=== PATIENT | female | born 1970 | race Caucasian/White ===

== ENCOUNTER 2020-11-04 21:27 | Emergency (ER) | payer BC, SELFPAY ==
--- NOTE | ~2020-11-04 | XR_ITS ---
EXAMINATION: XR HAND/WRIST, LEFT CLINICAL INFORMATION: Laceration. Pain with movement. COMPARISON: None TECHNIQUE: AP, oblique, and lateral views of the left hand and wrist. FINDINGS: Soft tissue laceration over the volar aspect of the left wrist. No radiopaque foreign body. No acute fracture or dislocation. Small marginal osteophytes scattered throughout the interphalangeal joints. No osseous erosion. No abnormal soft tissue calcification. XR/XR hand wrist LT IMPRESSION: Soft tissue laceration over the volar aspect of the left wrist without radiopaque foreign body. No acute osseous abnormality. 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
[2020-11-04 21:56] VITALS: BP 125/62; PULSE 83; RESP 16; TEMP 36.6; O2SAT 98; BMI 36.3
[2020-11-04] MEDS: Lidocaine HCl 2 % MPF 5 ML VIAL 10 ML SUBCUT (22:18)
--- NOTE | 2020-11-04 22:23 | ED.WOUNDLAC ---
HPI - Wound/Laceration General Chief Complaint: Wound/Laceration Stated Complaint: Laceration to wrist Time Seen by Provider: 11/04/20 22:06 Source: patient Mode of arrival: ambulatory Limitations: no limitations History of Present Illness HPI narrative: 50-year-old female presents with laceration to the left wrist. Stated that she was preparing for a baby shower, fell and slipped and cut her wrist on broken glass. She did present to urgent care however urgent care referred to the emergency department because the laceration may involve the tendon. Patient is able to move her extremities but states that she has a sharp stabbing pain when she moves her thumb. She did receive a tetanus shot approximately 2 years ago, did apply a pressure dressing. She does not report any other concerning symptoms. Onset (ago): hour(s) (Few hours prior to arrival) Extremity Location: left: wrist Place: home Patient tetanus UTD: Yes Context: accidental Associated symptoms: pain Treatments prior to arrival: bandage Related Data Allergies Allergy/AdvReac Type Severity Reaction Status Date / Time No Known Allergies Allergy Verified 11/04/20 21:55 Review of Systems Review of Systems: Constitutional: No Fever, No Chills ENT/Mouth: No Ear Pain, No Hoarseness, No sore throat Eyes: No Eye Pain, No Swelling, No Redness, No Foreign Body Cardiovascular: No Chest Pain, No SOB Respiratory: No Cough, No Dyspnea Gastrointestinal: No Nausea, No Vomiting, No Diarrhea, No abdominal Pain Genitourinary: No Dysuria, No Hematuria Musculoskeletal: positive left wrist pain, No Myalgias, No Joint Swelling Skin: Positive left wrist laceration, No rash Neuro: No Weakness, No Numbness, No Paresthesias, No Loss of Consciousness, No Dizziness, No Headache Psych: No Anxiety/Panic, No Depression Heme/Lymph: no easy bruising, no Lymphadenopathy Endocrine: No Polyuria, No Polydipsia Yes all other systems are reviewed and are negative [facility] Past Medical History Attestation statement: The following information was validated with the patient. Source: old records reviewed Medical History No known health problems Social History Social History Advance Directives: No Advance Directives Information Provided: No Physical Exam Vital Signs: Vital Signs: Last Vital Signs Temp 97.9 F 11/04/20 21:56 Pulse 83 11/04/20 21:56 Resp 16 11/04/20 21:56 BP 125/62 11/04/20 21:56 Pulse Ox 98 11/04/20 21:56 Body Mass Index 36.3 Appearance: Alert. Oriented X3. No acute distress. Eyes: Pupils equal, round and reactive to light. ENT: Pharynx normal. Neck: Normal inspection. Neck supple. CVS: Normal heart rate and rhythm. Pulses normal. Respiratory: No respiratory distress. Breath sounds normal. Abdomen: Soft and nontender. Skin: Skin warm and dry. Normal skin color. Normal skin turgor. Extremities: Has full range of motion and strength to all digits of the left hand, able to bend and flex without difficulty, no indication of tendon injury. Neuro: No motor deficit. No sensory deficit. Course Course Course Narrative: 50-year-old female presents with laceration to the left wrist. Will order x-rays to rule out foreign body. Patient does have full range of motion, strength 5/5 to each digit although difficult for her to move because of pain. No indication of tendon injury. 2 cm laceration to the left wrist at the ulnar side volar aspect. Irrigated with copious amounts of saline, prepped and draped in sterile fashion. X-rays negative for acute findings of bone involvement or foreign body. Please refer to procedure note for full details. 0 blood loss. Patient tolerated procedure well. Patient does understand that she must follow-up with hand surgery on Friday. Patient verbalized understanding of and agrees plan of care discharge home. Procedures Laceration Laceration 1: Site: upper extremity Side (If applicable): left Size (cm): 2 Description: linear Depth: simple, single layer Local Anesthetic: lidocaine 2% Amount of anesthesia used (mL): 5 Pre-repair: wound explored, irrigated extensively and deep structures intact Skin layer closed with: nylon Size (cm): 5-0 Number of sutures: 4 Technique: simple, interrupted MDM - Wound/Laceration Differential Diagnosis Differential diagnosis: Likely laceration Medical Records Attestation: I reviewed the patient's medical records. Lab Data Attestation: I reviewed the patient's lab results. Imaging Data Wrist x-ray: Attestation: I personally reviewed and interpreted this imaging study as follows: Radiologist's impression: TECHNIQUE: AP, oblique, and lateral views of the left hand and wrist. FINDINGS: Soft tissue laceration over the volar aspect of the left wrist. No radiopaque foreign body. No acute fracture or dislocation. Small marginal osteophytes scattered throughout the interphalangeal joints. No osseous erosion. No abnormal soft tissue calcification. XR/XR hand wrist LT IMPRESSION: Soft tissue laceration over the volar aspect of the left wrist without radiopaque foreign body. No acute osseous abnormality. 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 Discharge Plan Discharge Clinical Impression: Laceration Patient Disposition: Home, Self-Care Instructions: Laceration (ED) Additional Instructions: You were evaluated for laceration to the left wrist. X-rays do not indicate foreign body but it does show diffuse arthritis throughout your hand. Your laceration was deep, and tendons were exposed, you do have full range of motion to all of your extremities which makes it less likely that this is a tendon laceration. However you do need to follow-up with a hand surgeon. Please follow-up with orthopedics. 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 Please keep sutures in place for the next 10 days. Return in 10 days for removal. Thank you for choosing this emergency department for evaluation. Please follow-up with primary care physician as needed. Return to the emergency department for any new, concerning, or worsening symptoms. Referrals: Felicitas Gudino MD [Physician] - 2 days (Wrist laceration) Stand Alone Forms: Work/School Release Interventions: ED Discharge Assessment Last Done: 11/05/20 00:27 Discharge Date/Time: 11/05/20 00:27
== END 2020-11-05 00:27 | disposition home or self-care (01) ==
PROVIDERS: Emergency Provider Student in an Organized Health Care Education/Training Program; PCP Internal Medicine
DX: S61.512A Laceration without foreign body of left wrist, initial encounter (principal); W25.XXXA Contact with sharp glass, initial encounter; Y93.9 Activity, unspecified; Y92.9 Unspecified place or not applicable; Y99.9 Unspecified external cause status
CPT/HCPCS: 12001; 73110; 73130; 99284

== ENCOUNTER → 2020-11-10 08:42 | Outpatient (BNVA) | payer BC, SELFPAY | PROVIDERS: Visit Provider Physician Assistant ==

== ENCOUNTER → 2020-11-29 13:42 | Outpatient (BNVA) | payer BC, SELFPAY | PROVIDERS: PCP Internal Medicine; Visit Provider Physician Assistant ==

== ENCOUNTER 2020-12-07 14:00 | Outpatient (RCR) | payer BC, SELFPAY ==
--- NOTE | 2020-11-16 14:07 | MHC.OT.OEV ---
[address] [phone] F: [phone] Occupational Therapy Evaluation Diagnosis: LACERATION WITHOUT FOREIGN BODY OF L WRIST Date of Onset: 11/04/20 Attending Provider: Jeniffer Ponce Prescribed Treatment: EVAL AND RASHAUN MD Follow Up Appointment: 11/29/20 History of Current Condition: Pt REPORTS PREPARING FOR BABY SHOWER AND FELL ON BROKEN PUNCH BOWL GLASS. [place] [facility] [place]RAYS WERE PERFORMED AND WAS NEGATIVE FOR FOREIGN BODY OR BONE INVOLVEMENT. SHE HAD A 2 CM LACERATION TO THE LEFT WRIST AT THE ULNAR SIDE VOLAR ASPECT WITH FOUR SUTURES PLACED. SUTURES REMOVED 11/15/20. 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 DIFFICULTIES WITH DONNING/DOFFING BRA, PULLING ON SOCKS, WASHING DISHES AND BATHING LEs. UNABLE TO LIFT HEAVY ITEMS. Sleep: NO DIFFICULTIES WITH SLEEPING, WEARING SPLINT Driving: NO DIFFICULTIES; USING DOMINANT RUE Pain Assessment Pain Score: 0-9/10 Pain Scale Used: Numeric (0 - 10) Pain Location and Description: PAINFREE AT REST 4-9/10 ACHY FEELING; LACERATION SITE THROUGH SMALL FINGER DIPj Aggravating Factors: PINCHING, PULLING Alleviating Factors: TAKING TYLENOL, MASSAGE AND WRIST SUPPORT, HAS NOT TRIED HEAT OR ICE Skin and Soft Tissue Assessment Skin and Soft Tissue: Swelling Wound Comments: SMALL WOUND TO LEFT VOLAR, ULNAR WRIST; OA CHANGES IN B/L IP JOINTS Nerve assessment Ulnar Nerve: Left Impaired Median Nerve: Radial Nerve: Comments: DIMINISHED TO LIGHT TOUCH AT MEDIAL HAND PER SEMMES МАРИЯ ASSESSMENT Sensory Assessment Temperature: Light Touch: Left Impaired Proprioception: Vibration: Comments: Edema Assessment Upper Extremity: Left Impaired Lower Extremity: Comments: MILD EDEMA TO ULNAR WRIST CIRCUMFERNCE OF WRIST, DISTAL TO ULNA STYLOID: LEFT 17.4 CM, RIGHT 17.0 CM Dexterity Assessment Dexterity: Left Impaired Comments: FUNCTIONAL DEXTERITY TEST: LEFT 42 SECONDS (MODERATELY FUNCTIONAL), RIGHT 25 SECONDS Special Tests Comments: AROM(PROM) Strength Wrist Flexion: L 50 ,R 60 Extension: L 50, R 60 Ulnar Deviation: L 32, R 42 Radial Deviation: L 25, R 30 Comments: Flexion: Extension: Ulnar Deviation: Radial Deviation: Comments: Thumb Thumb CMC Flexion: Thumb MCP Flexion: Thumb IP Flexion: Radial Abduction: Palmar Abduction: [place] (Kapandji 0-10): 8 Comments: Digits Index MCP: PIP: DIP: Long MCP: PIP: DIP: Ring MCP: PIP: DIP: Small MCP: L 72, R 90 PIP: L 74, R 92 DIP: L 50, R 74 Comments: PAIN IN DIPj > PIPj WITH FLEXION Gross Grasp: R 75 POUNDS Lateral Pinch: R 16, L 6 Two-Point Pinch: Three-Jaw Adolfo: Comments: L COOK HELPER PASTRY STRENGTH DEFERRED Patient Education Primary Language: Lao Farm 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 Patient demonstrates Patient verbalizes Barriers to Learning: None Readiness for Learning: Accepting Who was educated? Patient Comments: Plan of Care Assessment: MS BRAVO IS 12 DAYS POST LACERATION TO L ULNA WRIST. HER SUTURES WERE REMOVED YESTERDAY, 11/15/20. 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 SHE HAS ACHY, SHOOTING PAIN THROUGH HER SMALL FINGER WITH FUNCTIONAL USE. A 52% LIMITATION IS REPORTED PER THE QUICK DASH ASSESSMENT. ONGOING SKILLED OT IS WARRANTED TO ACHIEVE OPTIMAL FUNCTIONAL LEVEL AND IMPROVE QOL, STG Duration: 3 WEEKS Short Term Goals: IND HEP IND JOINT PROTECTION TECHNIQUES KAPANDJI 10 REPORT <4/10 PAIN WITH ADLs AND LIGHT IADLs IND SCAR MOBILIZATION LTG Duration: 5 WEEKS Qa Architect Goals: QUICK DASH <30 COOK HELPER PASTRY STRENGTH 50 POUNDS FUNCTIONAL DEXTERITY TEST TO FUNCTIONAL LEVEL <28 SECONDS TOLERATE LIFTING >20 POUNDS WITH <2/10 PAIN L WRIST FLEX/EXT 60/60 Frequency and Duration: The patient will be seen 2X/WEEK FOR 5 WEEKS Treatment Plan: Therapeutic Exercise Therapeutic Activity Home Exercise Program Splinting Neuro Re-ed Patient Education Desensitization/Sensory Re-ed Edema Control ADL Training Ultrasound NMES Iontophoresis Paraffin Fluidotherapy MHP Cold Packs Joint Mobilization Soft Tissue Mobilization Kinesiotaping Electronically Signed By: KALA JACOBSON/Keven Reviewed/agree with student documentation: N/A Therapist: Please sign and return to therapist, Thank you for your referral.
--- NOTE | 2020-12-07 15:47 | MHC.OT.DC ---
[address] [phone] F: [phone] Occupational Therapy Discharge Note Provider: Jeniffer Ponce Diagnosis: LACERATION WITHOUT FOREIGN BODY OF L WRIST Date of Evaluation: 11/16/20 Date of Discharge: 12/07/20 Treatments to Date: 4 Discharge Status: Achieved Goals Improved Function Independent with HEP Discharge Summary: MS BRAVO HAS MET HER STGs AND LTGs, SUSPECT Pt WILL CONTINUE TO IMPROVE STRENGTH WITH HEP. Pt DEMO GOOD SAFETY AWARENESS, COMPLIANCE AND UNDERSTANDING ON PROGRESSION OF HEP. RECOMMEND USE OF PREFAB WRIST BRACE WITH LIFTING AND WORK RELATED TASKS. NO FURTHER OT WARRANTED, D/C OT SERVICES. Electronically Signed By: WALT MONTERO OTR/L Reviewed/agree with student documentation: N/A Therapist: Please Sign and return to therapist, thank you for your referral.
== END 2020-12-07 14:55 | disposition home or self-care (01) ==
LOC: HO.OT 14:00
PROVIDERS: PCP Internal Medicine; Visit Provider Physician Assistant
DX: S61.512D Laceration without foreign body of left wrist, subsequent encounter (principal)
CPT/HCPCS: 97110; 97140; 97166

== ENCOUNTER → 2020-12-13 10:36 | Outpatient (BNVA) | payer BC, SELFPAY | PROVIDERS: PCP Internal Medicine; Visit Provider Orthopaedic Surgery ==

== ENCOUNTER 2020-12-27 11:30 | Outpatient (RCR) | payer BC, SELFPAY ==
--- NOTE | 2021-01-01 13:27 | MHC.OT.DC ---
[address] [phone] F: [phone] Occupational Therapy Discharge Note Provider: Felicitas Gudino Diagnosis: LACERATION WITHOUT FOREIGN BODY OF L WRIST Date of Evaluation: 11/16/20 Date of Discharge: 01/01/21 Treatments to Date: 7 Discharge Status: Achieved Goals Improved Function Independent with HEP Discharge Summary: MS BRAVO RETURNED TO OUTPATIENT OT FOR WORK CONDITIONING TASKS IN ANTICIPATION OF RETURN BACK TO WORK. 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 IN CLINIC, Pt DEMO GOOD TECHNIQUE AND BODY MECHANICS WITH LADDER LIFT OF ABOUT 25 POUNDS. SHE IS EAGER TO RETURN BACK TO WORK AND HAS BEEN CLEARED BY HER DOCTOR. NO FURTHER OT SERVICES WARRANTED AT THIS TIME - Pt TO BE TRANSITIONED TO A HOME BASED PROGRAM. Electronically Signed By: KALA JACOBSON/Keven Reviewed/agree with student documentation: N/A Therapist: Please Sign and return to therapist, thank you for your referral.
== END 2021-01-01 13:00 | disposition home or self-care (01) ==
LOC: HO.OT 11:30
PROVIDERS: PCP Internal Medicine; Visit Provider Physician Assistant
DX: S61.512A Laceration without foreign body of left wrist, initial encounter (principal)
CPT/HCPCS: 97033; 97035; 97110; 97530

== ENCOUNTER → 2020-12-27 12:10 | Outpatient (BNVA) | payer BC, SELFPAY | PROVIDERS: PCP Internal Medicine; Visit Provider Orthopaedic Surgery ==

== ENCOUNTER 2022-01-31 19:52 | Emergency (ER) | payer BC, SELFPAY ==
--- NOTE | ~2022-01-31 | CT_ITS ---
EXAMINATION: CT head/brain wo IV con CLINICAL INFORMATION: Reason for Exam dizziness, bump on occiput region COMPARISON: None. TECHNIQUE: Contiguous axial imaging was performed from the skull base to vertex without intravenous contrast. Sagittal and coronal reformatted images were obtained. This CT examination was performed using dose optimization techniques as appropriate, variously including the following: * Automated exposure control * Adjustment of mA and/or kV according to patient size (this includes techniques or standardized protocols for targeted exams where dose is matched to indication/reason for exam; i.e. extremities or head) Use of iterative reconstruction technique DLP: 735 mGy-cm FINDINGS: Small left parietal scalp subgaleal hematoma. No underlying calvarial fracture. The mastoids are clear. Moderate inflammatory disease involving the maxillary and ethmoid sinuses. There is no evidence of acute intracranial hemorrhage or territorial infarction. No abnormal mass effect or midline shift is seen. Garcia to white matter differentiation is well preserved. No extra-axial fluid collections are identified. No hydrocephalus. No significant volume loss. There is no abnormal attenuation within the brain parenchyma. CT/CT head/brain wo IV con IMPRESSION: 1. No acute intracranial abnormality including hemorrhage, mass effect, hydrocephalus, or acute territorial edematous infarction. 2. Small left parietal scalp hematoma.
--- NOTE | ~2022-01-31 | CT_ITS ---
EXAMINATION: CT ANGIOGRAM HEAD CT ANGIOGRAM NECK CLINICAL INFORMATION: Reason for Exam feels off balance COMPARISON: Earlier same day noncontrast head CT TECHNIQUE: Initial noncontrast daycare teacher imaging of the head and neck was performed. Comparison is made with noncontrast head CT from earlier today. Test bolus sequences followed by intravenous administration 70 mL of Omnipaque 350. Helical imaging was performed in the axial plane from the aortic arch to the skull vertex. Delayed postcontrast imaging of the head was also performed. The data was processed at the medical technologist microbiology's workstation for generation of MIP sequences. Angled MIPs and volume rendered reformatted images were also generated at an offline 3D workstation. Stenoses are assessed in accordance with NASCET criteria unless otherwise indicated. DLP: 1588 mGy-cm This CT examination was performed using dose optimization techniques as appropriate, variously including the following: *Automated exposure control. *Adjustment of mA and/or kV according to patient size (this includes techniques or standardized protocols for targeted exams where dose is matched to indication/reason for exam; i.e. extremities or head). *Use of iterative reconstruction technique. FINDINGS: Postcontrast CT HEAD: The ventricles and sulci are normal in size and configuration without significant volume loss or hydrocephalus. There is no abnormal attenuation within the brain parenchyma. No territorial loss of shea-white differentiation. No acute intracranial hemorrhage or extra-axial fluid collection. No significant mass effect or herniation pattern. No abnormal intracranial enhancement within limitations of CT. The orbits are grossly normal. Mastoids are clear. Mild to moderate paranasal sinus mucosal thickening. Osseous structures are intact. Left parietal scalp hematoma CTA HEAD: The internal carotid arteries are normal. The MCA vascular complexes are normal bilaterally. The DAHLIA complexes are normal bilaterally. The intradural vertebral arteries are patent. The basilar artery is normal. The posterior cerebral arteries are widely patent. No proximal large vessel occlusion. No aneurysms and no high flow vascular malformations. No evidence of dural arteriovenous fistula. Timing of the contrast bolus allows assessment of the major dural venous sinuses, which all opacify normally CTA NECK: Classic 3 vessel branching pattern of the aortic arch. Origins of the great vessels are widely patent. The common carotid arteries are widely patent. The carotid bifurcations and bilateral internal carotid arteries are normal. The vertebral arteries are codominant The vertebral artery ostia are widely patent. Both vertebral arteries are widely patent throughout their extracranial cervical course. CT NECK: No aerodigestive tract mass. . The salivary glands are unremarkable. The thyroid gland is normal. Normal appearance of the suprahyoid and infrahyoid neck spaces. No pathologically enlarged cervical chain lymph nodes. No acute osseous abnormality. 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 The visualized lung apices and upper mediastinum are within normal limits. CT/CT angio head neck IMPRESSION: 1. No acute intracranial abnormality including hemorrhage, mass effect, hydrocephalus, or acute territorial edematous infarction. 2. No arterial high grade stenosis or large vessel occlusion in the head or neck.
[2022-01-31 20:03] VITALS: BP 135/76; BP 151/80; PULSE 80; PULSE 90; RESP 18; O2SAT 100; O2SAT 97; BMI 36.5
--- NOTE | 2022-01-31 20:16 | ED_ITS ---
HPI - General Adult General Chief complaint: General Medical Stated complaint: dizziness,weakness Time Seen by Provider: 01/31/22 19:59 Source: patient and EMS Mode of arrival: EMS Limitations: other (Poor historian) History of Present Illness HPI narrative: This is a 51-year-old female no significant medical history presenting to the emergency department via ambulance complaints of dizziness, weakness, bump on b ack of head, headache x1 day. Patient tells me earlier today she got home from work she was doing a few things around the house when all the sudden she started feeling like she was going to pass out, she felt lightheaded, walked herself to her bed, laid down, she immediately started feeling pain to the back of her head, reports of a severe pain and then she noticed that she had a bump on the back of her head that was growing. She reports this is never happened to her before. She denies trauma. She reports she was drinking alcohol after work, just to drink and she smoked marijuana. She reports that this time she is still feeling somewhat lightheaded. And she is very worried about the bump in the back of her head. Patient is not on blood thinners. Denies chest pain, shortness of breath, nausea, vomiting, abdominal pain, vision changes. To clarify patient lost consciousness or hit head. GCS of 15 upon arrival and NIHSS-0 Related Data Home Medications Medication Instructions Recorded Confirmed acetaminophen 500 mg tablet 500 mg PO Q6H PRN 11/10/20 (Tylenol Extra Strength) cholecalciferol (vitamin D3) 1,250 1,250 mcg PO QWEEK 11/29/20 mcg (50,000 unit) capsule Allergies Allergy/AdvReac Type Severity Reaction Status Date / Time No Known Allergies Allergy Verified 12/27/20 12:15 Review of Systems Review of Systems: Constitutional : No Weight loss, No Fever, No Chills, + Fatigue, + Malaise ENT/Mouth : No sore throat, No Rhinorrhea Eyes: No Eye Pain, No Swelling, No Redness Cardiovascular : No Chest Pain, No SOB, No Dyspnea on Exertion, No Orthopnea, No Edema, No Palpitations Respiratory : No Cough, No Sputum, No Wheezing Gastrointestinal : No Nausea, No Vomiting, No Diarrhea, No Constipation, No abdominal Pain, No Hematochezia, No Melena Genitourinary : No Dysuria, No Urinary Frequency, No Hematuria, Musculoskeletal : No joint pain, No Myalgias, No Joint Swelling Skin : No Skin Lesions, No rash Neuro : No Weakness, No Numbness, + Dizziness, + Headache, + bump on head Psych : No Anxiety/Panic, No Depression All other systems reviewed and are negative Yes all other systems are reviewed and are negative [facility] Past Medical History Attestation statement: The following information was validated with the patient. 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 Oriented X3.? No acute distress.? Head: Normocephalic, atraumatic, no step-offs or deformities + small bump to the ociput region of head on left Eyes: Pupils equal, round and reactive to light.? Extraocular movements intact. ENT: Pharynx normal.? Neck: Normal inspection.? Neck supple.? CVS: Normal heart rate and rhythm.? Pulses normal.? Respiratory: No respiratory distress.? Breath sounds normal.? Abdomen: Soft and nontender.? Skin: Skin warm and dry.? Normal skin color.? Normal skin turgor.? Extremities: No lower extremity edema.? No calf ttp. 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 Neuro: Oriented X 3.? No motor deficit.? No sensory deficit. CN 2-12 intact . Normal [id number], [id number]. Negative pronator drift, normal Romberg Course Course Course Narrative: Patient was evaluated by Dr. Brand who evaluated patient and obtained a hx recommends dc home aslong as shes not staying alone. Recommends discharging home on a muscle relaxer. She educated patient on not taking asa or blood thinners. Patient reports improvment in sx. Tells me no need for coags or any further intervention or tx. Suspects patient hit head on something. Which is possibel as patient poor historian Reevaluation(s) Reevaluation #1: CBC with no acute findings, chemistry with no acute electrolyte abnormalities requiring intervention. COVID negative. Orthostatics were done by nursing staff, patient reports inability to stand secondary to dizziness. CT of the head pending. Time: 21:17 Reevaluation #2: CT of the head with no acute intracranial abnormality including hemorrhage, mass effect, hydrocephalus or acute territorial dime it is infarction. It does show small left parietal scalp hematoma, there is some concerns that maybe patient fell, bumped her head or had a syncopal episode however patient tells me she does not think so. Patient not on blood thinners, the lump has remained the same sized and she arrived in the emergency department her neuro exam is intact, cerebellar function normal, patient is able to ambulate with steady gait normal coordination alert and oriented x4. Patient is a poor historian therefore making history taking difficult. Patient reporting symptomatic improvement after fluids. At this time patient will be discharged home advised to return with any new or worsening symptoms, outlined he is worrisome signs and symptoms on discharge. She verbalizes understanding. At this time I feel comfortable with discharge home with prompt PCP follow-up. Time: 22:37 Medical Decision Making [facility] Narrative Medical decision making narrative: 2012 51-year-old female presents with headache, dizziness, near syncopal episode and a bump on the back of the head that started just prior to arrival. Physical examination significant for small bump to the ociput region of head on left , neuro nonfocal, cerebellar function intact, regular rate and rhythm, lungs clear, abdomen soft nontender nondistended. Patient following commands. GCS of 15 NIH stroke scale negative. Will rule out intracranial pathologies, ICH. Unlikely that this is a stroke or posterior stroke. Likely near syncope. Will rule out orthostatic hypotension. Plan at this time is basic labs, troponin, EKG, urine, CT of the head and brain without contrast. Medical Records Medical records reviewed: Yes I reviewed the patient's medical records. Lab Data Lab results reviewed: Yes I reviewed the patient's lab results. Result diagrams: 01/31/22 20:43 01/31/22 20:43 Labs: Lab Results 01/31/22 01/31/22 01/31/22 Range/Units 20:32 20:43 20:43 WBC 7.1 (4.8-10.8) X10*3/uL RBC 4.58 (4.20-5.50) X10*6/uL Hgb 12.9 (12.0-16.0) g/dl Hct 37.7 (37.0-47.0) % MCV 82.3 (80.0-98.0) fL MCH 28.2 (27.0-33.0) pg MCHC 34.2 (31.0-35.0) g/dl RDW 12.5 (11.0-16.0) % Plt Count 240 (160-400) X10*3/uL MPV 9.8 (9.4-12.3) fL Immature Gran % (Auto) 0.4 (0.0-0.4) % Neut % (Auto) 68.9 (45-73) % Lymph % (Auto) 20.8 (20-40) % [place] % (Auto) 7.4 (2-11) % Eos % (Auto) 2.1 (0-4) % Baso % (Auto) 0.4 (0-2) % Lymph # (Auto) 1.5 (1.2-4.9) X10*3/uL [place] # (Auto) 0.5 (0.1-1.2) X10*3/uL Eos # (Auto) 0.2 (0.0-0.4) X10*3/uL Baso # (Auto) 0.0 (0.0-0.2) X10*3/uL Abs Immat Gran (auto) 0.03 (0.00-0.03) X10*3/uL Absolute Neuts (auto) 4.9 (2.0-8.3) x10*3/uL Absolute Nucleated RBC 0.000 (0.0-0.012) X10*3/uL Nucleated RBC % (auto) 0.0 (0.0-0.2) /100WBC Sodium 140 (135-145) mmol/L Potassium 4.0 (3.3-5.1) mmol/L Chloride 103 (96-108) mmol/L Carbon Dioxide 25 (22-29) mmol/L Anion Gap 16 (12-20) BUN 15 (9-16) mg/dL Creatinine 0.81 (0.5-1.4) mg/dL Estim Creat Clear Calc 91.3 Estimated GFR > 60 Random Glucose 122 H (60-115) mg/dL Calcium 9.5 (8.4-10.2) mg/dL Magnesium 1.9 (1.6-2.6) mg/dL Total Bilirubin 0.3 (0.0-1.0) mg/dL AST 28 (5-31) U/L ALT 25 (0-31) U/L Alkaline Phosphatase 58 (39-117) U/L Troponin I High Sens (<3.5-17.0) ng/L Total Protein 7.3 (6.5-8.0) g/dL Albumin 4.3 (3.5-5.0) g/dL COVID-19 ([facility]O) Negative (Negative) COVID-19 Clin Com See Note 01/31/22 Range/Units 20:43 WBC (4.8-10.8) X10*3/uL RBC (4.20-5.50) X10*6/uL Hgb (12.0-16.0) g/dl Hct (37.0-47.0) % MCV (80.0-98.0) fL MCH (27.0-33.0) pg MCHC (31.0-35.0) g/dl RDW (11.0-16.0) % Plt Count (160-400) X10*3/uL MPV (9.4-12.3) fL Immature Gran % (Auto) (0.0-0.4) % Neut % (Auto) (45-73) % Lymph % (Auto) (20-40) % [place] % (Auto) (2-11) % Eos % (Auto) (0-4) % Baso % (Auto) (0-2) % Lymph # (Auto) (1.2-4.9) X10*3/uL [place] # (Auto) (0.1-1.2) X10*3/uL Eos # (Auto) (0.0-0.4) X10*3/uL Baso # (Auto) (0.0-0.2) X10*3/uL Abs Immat Gran (auto) (0.00-0.03) X10*3/uL Absolute Neuts (auto) (2.0-8.3) x10*3/uL Absolute Nucleated RBC (0.0-0.012) X10*3/uL Nucleated RBC % (auto) (0.0-0.2) /100WBC Sodium (135-145) mmol/L Potassium (3.3-5.1) mmol/L Chloride (96-108) mmol/L Carbon Dioxide (22-29) mmol/L Anion Gap (12-20) BUN (9-16) mg/dL Creatinine (0.5-1.4) mg/dL Estim Creat Clear Calc Estimated GFR Random Glucose (60-115) mg/dL Calcium (8.4-10.2) mg/dL Magnesium (1.6-2.6) mg/dL Total Bilirubin (0.0-1.0) mg/dL AST (5-31) U/L ALT (0-31) U/L Alkaline Phosphatase (39-117) U/L Troponin I High Sens < 3.5 (<3.5-17.0) ng/L Total Protein (6.5-8.0) g/dL Albumin (3.5-5.0) g/dL COVID-19 ([facility]IRO) (Negative) COVID-19 Clin Com Critical Care Time Critical Care Time Critical Care Time: No Discharge Plan Discharge Clinical Impression: Dizziness, Near syncope, Head lump Patient Disposition: Home, Self-Care Instructions: Near Syncope (ED), Dizziness (ED) Additional Instructions: Take your medications as prescribed. If you were prescribed antibiotics today, it is important that you take your medication to their entirety, do not skip any doses, do not finish them early. Follow-up with your primary care provider this week. Return to the emergency department with new or worsening symptoms. Such as feve rs, chills, chest pain, shortness of breath, nausea, vomiting, dizziness, headache, vision changes, lethargy, altered mental status, seizure like activity, confusion, worsening headache, growing lump on head. Avoid alcohol, blood thinners, aspirin. In case of emergency call 911 CT/CT head/brain wo IV con IMPRESSION: ? 1.? No acute intracranial abnormality including hemorrhage, mass effect, hydrocephalus, or acute territorial edematous infarction. ? 2.? Small left parietal scalp hematoma. Referrals: Joyce Maldonado MD [Primary Care Provider] - 2 days Stand Alone Forms: Work/School Release
--- NOTE | 2022-01-31 20:23 | ECG_ITS ---
Test Reason : DIZZY Blood Pressure : / mmHG Vent. Rate : 078 BPM Atrial Rate : 078 BPM P-R Int : 168 ms QRS Dur : 086 ms QT Int : 422 ms P-R-T Axes : 050 011 026 degrees QTc Int : 481 ms Normal sinus rhythm Normal ECG No previous ECGs available Referred By: Theodore Birch Electronically Signed By:VALERIY HUGHES MD
[2022-01-31 20:29] VITALS: BP 140/74; PULSE 76; RESP 18; O2SAT 100
[2022-01-31 20:49] LABS: MANUAL DIFF FLAG NO
[2022-01-31 20:50] LABS: Basophils Percent Auto 0.4 % (0-2); Eosinophils Absolute Auto 0.2 X10*3/uL (0.0-0.4); Eosinophils Percent Auto 2.1 % (0-4); Hematocrit 37.7 % (37.0-47.0); Hemoglobin 12.9 g/dl (12.0-16.0); Imm Gran Abs Auto 0.03 X10*3/uL (0.00-0.03); Imm Gran Pct Auto 0.4 % (0.0-0.4); Lymphocytes Absolute Auto 1.5 X10*3/uL (1.2-4.9); Lymphocytes Percent Auto 20.8 % (20-40); Mean Corpuscular HGB Conc 34.2 g/dl (31.0-35.0); Mean Corpuscular Hemoglobin 28.2 pg (27.0-33.0); Mean Corpuscular Volume 82.3 fL (80.0-98.0); Mean Platelet Volume 9.8 fL (9.4-12.3); Monocytes Absolute Auto 0.5 X10*3/uL (0.1-1.2); Monocytes Percent Auto 7.4 % (2-11); Neutrophils Absolute Auto 4.9 x10*3/uL (2.0-8.3); Neutrophils Percent Auto 68.9 % (45-73); Platelet Count 240 X10*3/uL (160-400); Red Blood Count 4.58 X10*6/uL (4.20-5.50); Red Cell Distribution Width 12.5 % (11.0-16.0); White Blood Count 7.1 X10*3/uL (4.8-10.8)
[2022-01-31 21:05] LABS: COVID-19 Test Negative (Negative)
[2022-01-31] MEDS: 0.9 % Sodium Chloride 1,000 ML 999 ML IV (21:06)
[2022-01-31 21:10] VITALS: BP 115/53; BP 137/76; PULSE 71; PULSE 93
[2022-01-31 21:15] LABS: Alanine Aminotransferase 25 U/L (0-31); Albumin Level 4.3 g/dL (3.5-5.0); Alkaline Phosphatase 58 U/L (39-117); Anion Gap 16 (12-20); Aspartate Amino Transferase 28 U/L (5-31); Bilirubin Total 0.3 mg/dL (0.0-1.0); Blood Urea Nitrogen 15 mg/dL (9-16); Calcium 9.5 mg/dL (8.4-10.2); Carbon Dioxide 25 mmol/L (22-29); Chloride 103 mmol/L (96-108); Creatinine Clr Calc Pharmacy 91.3; Estimated Glomerular Filt Rate > 60; Glucose Random 122 mg/dL (60-115); Magnesium 1.9 mg/dL (1.6-2.6); Sodium 140 mmol/L (135-145); Total Protein 7.3 g/dL (6.5-8.0)
[2022-01-31 21:21] LABS: Troponin-I High Sensitivity < 3.5 ng/L (<3.5-17.0)
[2022-01-31] MEDS: ondansetron HCL 4 MG/2 ML VIAL IVPUSH (21:37)
[2022-01-31 23:19] LABS: Prothrombin Time 11.9 SEC (10.0-13.1)
--- NOTE | 2022-01-31 23:28 | ED.GENADULT ---
HPI - General Adult General Chief complaint: General Medical Stated complaint: dizziness,weakness Time Seen by Provider: 01/31/22 19:59 Source: patient and EMS Mode of arrival: EMS Limitations: other (Poor historian) Related Data Home Medications Medication Instructions Recorded Confirmed acetaminophen 500 mg tablet 500 mg PO Q6H PRN 11/10/20 (Tylenol Extra Strength) cholecalciferol (vitamin D3) 1,250 1,250 mcg PO QWEEK 11/29/20 mcg (50,000 unit) capsule Allergies Allergy/AdvReac Type Severity Reaction Status Date / Time No Known Allergies Allergy Verified 12/27/20 12:15 [facility] Past Medical History Medical History No known health problems Social History Social History Patient Tobacco Use Status: Never used Tobacco Advance Directives: No Advance Directives Information Provided: Yes Patient : No Current occupational status: employed 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 Physical Exam ED Vital Signs: Vital Signs - 24 hr 01/31/22 20:03 01/31/22 20:29 01/31/22 21:10 Temperature Pulse Rate 80 76 71 Respiratory Rate 18 18 Blood Pressure 135/76 140/74 H 115/53 L Pulse Oximetry 100 100 Oxygen Delivery Method Room Air Room Air 01/31/22 21:10 01/31/22 23:35 Temperature 97.9 F Pulse Rate 93 75 Respiratory Rate 18 Blood Pressure 137/76 110/46 L Pulse Oximetry 97 Oxygen Delivery Method Room Air BMI result Body Mass Index 36.5 Medical Decision Making Lab Data Result diagrams: 01/31/22 20:43 01/31/22 20:43 Labs: Lab Results 01/31/22 01/31/22 01/31/22 Range/Units 20:32 20:43 20:43 WBC 7.1 (4.8-10.8) X10*3/uL RBC 4.58 (4.20-5.50) X10*6/uL Hgb 12.9 (12.0-16.0) g/dl Hct 37.7 (37.0-47.0) % MCV 82.3 (80.0-98.0) fL MCH 28.2 (27.0-33.0) pg MCHC 34.2 (31.0-35.0) g/dl RDW 12.5 (11.0-16.0) % Plt Count 240 (160-400) X10*3/uL MPV 9.8 (9.4-12.3) fL Immature Gran % (Auto) 0.4 (0.0-0.4) % Neut % (Auto) 68.9 (45-73) % Lymph % (Auto) 20.8 (20-40) % [place] % (Auto) 7.4 (2-11) % Eos % (Auto) 2.1 (0-4) % Baso % (Auto) 0.4 (0-2) % Lymph # (Auto) 1.5 (1.2-4.9) X10*3/uL [place] # (Auto) 0.5 (0.1-1.2) X10*3/uL Eos # (Auto) 0.2 (0.0-0.4) X10*3/uL Baso # (Auto) 0.0 (0.0-0.2) X10*3/uL Abs Immat Gran (auto) 0.03 (0.00-0.03) X10*3/uL Absolute Neuts (auto) 4.9 (2.0-8.3) x10*3/uL Absolute Nucleated RBC 0.000 (0.0-0.012) X10*3/uL Nucleated RBC % (auto) 0.0 (0.0-0.2) /100WBC PT (10.0-13.1) SEC INR (0.9-1.1) Sodium 140 (135-145) mmol/L Potassium 4.0 (3.3-5.1) mmol/L Chloride 103 (96-108) mmol/L Carbon Dioxide 25 (22-29) mmol/L Anion Gap 16 (12-20) BUN 15 (9-16) mg/dL Creatinine 0.81 (0.5-1.4) mg/dL Estim Creat Clear Calc 91.3 Estimated GFR > 60 Random Glucose 122 H (60-115) mg/dL Calcium 9.5 (8.4-10.2) mg/dL Magnesium 1.9 (1.6-2.6) mg/dL Total Bilirubin 0.3 (0.0-1.0) mg/dL AST 28 (5-31) U/L ALT 25 (0-31) U/L Alkaline Phosphatase 58 (39-117) U/L Troponin I High Sens (<3.5-17.0) ng/L Total Protein 7.3 (6.5-8.0) g/dL Albumin 4.3 (3.5-5.0) g/dL Ethyl Alcohol mg/dL COVID-19 ([facility]IRO) Negative (Negative) COVID-19 Clin Com See Note 01/31/22 01/31/22 01/31/22 Range/Units 20:43 23:08 23:08 WBC (4.8-10.8) X10*3/uL RBC (4.20-5.50) X10*6/uL Hgb (12.0-16.0) g/dl Hct (37.0-47.0) % MCV (80.0-98.0) fL MCH (27.0-33.0) pg MCHC (31.0-35.0) g/dl RDW (11.0-16.0) % Plt Count (160-400) X10*3/uL MPV (9.4-12.3) fL Immature Gran % (Auto) (0.0-0.4) % Neut % (Auto) (45-73) % Lymph % (Auto) (20-40) % [place] % (Auto) (2-11) % Eos % (Auto) (0-4) % Baso % (Auto) (0-2) % Lymph # (Auto) (1.2-4.9) X10*3/uL [place] # (Auto) (0.1-1.2) X10*3/uL Eos # (Auto) (0.0-0.4) X10*3/uL Baso # (Auto) (0.0-0.2) X10*3/uL Abs Immat Gran (auto) (0.00-0.03) X10*3/uL Absolute Neuts (auto) (2.0-8.3) x10*3/uL Absolute Nucleated RBC (0.0-0.012) X10*3/uL Nucleated RBC % (auto) (0.0-0.2) /100WBC PT 11.9 (10.0-13.1) SEC INR 1.0 (0.9-1.1) Sodium (135-145) mmol/L Potassium (3.3-5.1) mmol/L Chloride (96-108) mmol/L Carbon Dioxide (22-29) mmol/L Anion Gap (12-20) BUN (9-16) mg/dL Creatinine (0.5-1.4) mg/dL Estim Creat Clear Calc Estimated GFR Random Glucose (60-115) mg/dL Calcium (8.4-10.2) mg/dL Magnesium (1.6-2.6) mg/dL Total Bilirubin (0.0-1.0) mg/dL AST (5-31) U/L ALT (0-31) U/L Alkaline Phosphatase (39-117) U/L Troponin I High Sens < 3.5 (<3.5-17.0) ng/L Total Protein (6.5-8.0) g/dL Albumin (3.5-5.0) g/dL Ethyl Alcohol < 10 mg/dL COVID-19 ([facility]) (Negative) COVID-19 Clin Com Discharge Plan Discharge Clinical Impression: Dizziness, Near syncope, Head lump Patient Disposition: Home, Self-Care Instructions: Near Syncope (ED), Dizziness (ED) Additional Instructions: Take your medications as prescribed. If you were prescribed antibiotics today, it is important that you take your medication to their entirety, do not skip any doses, do not finish them early. Follow-up with your primary care provider this week. Return to the emergency department with new or worsening symptoms. Such as fevers, chills, chest pain, shortness of breath, nausea, vomiting, dizziness, headache, vision changes, lethargy, altered mental status, seizure like activity, confusion, worsening headache, growing lump on head. Avoid alcohol, blood thinners, aspirin. In case of emergency call 911 CT/CT head/brain wo IV con IMPRESSION: ? 1.? No acute intracranial abnormality including hemorrhage, mass effect, hydrocephalus, or acute territorial edematous infarction. ? 2.? Small left parietal scalp hematoma. Referrals: Joyce Maldonado MD [Primary Care Provider] - 2 days Stand Alone Forms: Work/School Release
[2022-01-31 23:30] LABS: Ethanol < 10 mg/dL
[2022-01-31 23:35] VITALS: BP 110/46; PULSE 75; RESP 18; TEMP 36.6; O2SAT 97
[2022-01-31] MEDS: iohexoL 350 MG/ML 100 ML INFUS..BTL 70 ML IV (23:48)
[2022-02-01] MEDS: Meclizine HCl 25 MG TABLET PO (00:27)
[2022-02-01] MEDS: 0.9 % Sodium Chloride 1,000 ML 999 ML IV (00:27)
[2022-02-01 02:41] VITALS: BP 118/53; PULSE 68; RESP 18
== END 2022-02-01 02:54 | disposition home or self-care (01) ==
PROVIDERS: Physician Assistant; Emergency Provider Emergency Medicine; PCP Internal Medicine
DX: R55 Syncope and collapse (principal); R42 Dizziness and giddiness; R53.1 Weakness; R22.0 Localized swelling, mass and lump, head; Z20.822 Contact with and (suspected) exposure to COVID-19
CPT/HCPCS: 36415; 70450; 70496; 70498; 80053; 82077; 83735; 84484; 85025; 85610; 87635; 93005; 96374; 99284; J2405; Q9967

== ENCOUNTER 2022-12-26 08:54 | Outpatient (REF) | payer BC, SELFPAY ==
[2022-12-26 10:46] LABS: HIV AB/AG Nonreactive (Nonreactive); HIV Num 1 0.05 S/CO (0.00-0.99)
[2022-12-26 11:04] LABS: Erythrocyte Sedimentation Rate 10 MM/HR (0-20)
[2022-12-28 04:28] LABS: Lyme Abs Screen <0.90 index
[2023-01-02 15:43] LABS: Anti Nuclear Antibody Screen POSITIVE (NEGATIVE); Anti Nuclear Antibody Titer 1:40 titer
== END 2022-12-26 08:55 | disposition home or self-care (01) ==
LOC: HO.LAB 08:54
PROVIDERS: PCP Internal Medicine; Visit Provider Psychiatry & Neurology Neurology
DX: G93.49 Other encephalopathy (principal)
CPT/HCPCS: 36415; 85652; 86038; 86039; 86617; 86618; 87389

== ENCOUNTER 2022-12-26 09:21 | Day surgery (SDC) | payer BC, SELFPAY ==
[2022-12-26] VITALS (7 sets, daily range): BP systolic 112–162; BP diastolic 44–65; PULSE 58–82; RESP 14–16; TEMP 36.2–37.2; O2SAT 98–99; BMI 36.3
--- NOTE | ~2022-12-26 | FL_ITS ---
EXAMINATION: XR LUMBAR PUNCTURE CLINICAL INFORMATION: Headaches COMPARISON: None available. TECHNIQUE/FINDINGS: Patient was placed prone on the fluoroscopy table. A site on the lower back to the right of midline at the L4-L5 level was selected and sterilely prepped and draped. Following administration of lidocaine for local anesthesia, a 20-gauge by 6 inch spinal needle was advanced percutaneously to the level of the CSF using intermittent fluoroscopic guidance. A pressure was obtained at 14 mmHg. Approximately 9 mL of clear fluid was collected into 4 vials. The needle was removed. Hemostasis was readily achieved and a sterile dressing was applied. Patient tolerated procedure well without immediate competitions. FLUOROSCOPY TIME: 0.5 minutes DOSE AREA PRODUCT: 4.891 uGy-m2 (microgray-meter squared) FL/FL guided lumbar puncture LP IMPRESSION: Technically successful lumbar puncture as above
[2022-12-26 10:11] LABS: UPreg QC Valid YES; Urine Pregnancy NEGATIVE (NEGATIVE)
[2022-12-26 10:14] LABS: MANUAL DIFF FLAG NO
[2022-12-26 10:20] LABS: Basophils Percent Auto 0.6 % (0-2); Eosinophils Absolute Auto 0.1 X10*3/uL (0.0-0.4); Eosinophils Percent Auto 2.1 % (0-4); Hematocrit 37.9 % (37.0-47.0); Hemoglobin 12.6 g/dl (12.0-16.0); Imm Gran Abs Auto 0.02 X10*3/uL (0.00-0.03); Imm Gran Pct Auto 0.4 % (0.0-0.4); Lymphocytes Absolute Auto 1.6 X10*3/uL (1.2-4.9); Lymphocytes Percent Auto 31.8 % (20-40); Mean Corpuscular HGB Conc 33.2 g/dl (31.0-35.0); Mean Corpuscular Hemoglobin 27.6 pg (27.0-33.0); Mean Corpuscular Volume 82.9 fL (80.0-98.0); Mean Platelet Volume 9.8 fL (9.4-12.3); Monocytes Absolute Auto 0.3 X10*3/uL (0.1-1.2); Monocytes Percent Auto 6.6 % (2-11); Neutrophils Percent Auto 58.5 % (45-73); Platelet Count 220 X10*3/uL (160-400); Red Blood Count 4.57 X10*6/uL (4.20-5.50); Red Cell Distribution Width 13.1 % (11.0-16.0); White Blood Count 5.1 X10*3/uL (4.8-10.8)
[2022-12-26 10:27] LABS: INTERNATIONAL NORM RATIO 0.9 (0.9-1.1); Prothrombin Time 10.7 SEC (11.1-13.3)
[2022-12-26 10:30] LABS: Partial Thromboplastin Time 27.7 SEC (26.0-36.4)
[2022-12-26] MEDS: oxyCODONE HCl Immed Release 5 MG TABLET PO (12:30)
[2022-12-26] MEDS: Acetaminophen 325 MG TABLET 650 MG PO (12:30)
[2022-12-26 13:31] LABS: CSF Appearance Clear, Colorless; CSF Tube # 2
[2022-12-26 13:41] LABS: Glucose CSF 65 mg/dL
[2022-12-26 15:18] LABS: Oligoclonal Serum Yes
[2022-12-26 16:31] LABS: Appearance CSF CLEAR; CSF Tube # 4; Color CSF COLORLESS
[2022-12-26 16:32] LABS: Lymphocytes CSF 100 %; Red Blood Cell CSF 120 MM*3; White Blood Cell CSF 2 MM*3
[2022-12-28 23:09] LABS: Albumin, CSF 15.5 mg/dL (8.0-42.0); IgG 1040 mg/dL (600-1640); IgG Synthesis Rate -1.5 mg/24 h (-9.9-3.3); IgG, CSF 2.3 mg/dL (0.8-7.7)
[2023-01-03 06:18] LABS: Oligoclonal Banding Absent (Absent)
== END 2022-12-26 15:05 | disposition home or self-care (01) ==
LOC: HO.SSS 09:21
PROVIDERS: Psychiatry & Neurology Neurology; Radiology Diagnostic Radiology; PCP Internal Medicine; Visit Provider Student in an Organized Health Care Education/Training Program
PROC: 009U3ZZ Drainage of Spinal Canal, Percutaneous Approach (ICD-10-PCS; CPT 62270; principal; 2022-12-26 11:00)
DX: G93.49 Other encephalopathy (principal); G40.909 Epilepsy, unspecified, not intractable, without status epilepticus; R42 Dizziness and giddiness; E28.2 Polycystic ovarian syndrome
CPT/HCPCS: 36415; 62328; 81025; 82042; 82945; 83519; 83916; 84157; 85025; 85610; 85730; 86052; 86255; 86341; 87015; 87070; 87205; 89051

== ENCOUNTER → 2022-12-26 11:00 | Outpatient (BNV) | payer BC, SELFPAY | PROVIDERS: PCP Internal Medicine; Visit Provider Student in an Organized Health Care Education/Training Program | DX: G93.49 Other encephalopathy (principal) | CPT/HCPCS: 62328 ==